=== PATIENT | male | born 1935 | race African-American/Black ===

== ENCOUNTER 2022-09-20 17:12 | Emergency (ER) | payer OTHER ==
[~2022-09-20] VITALS: Ht 182.9 cm; Wt 85.0 kg
[2022-09-20] MEDS ORDERED: LIDOCAINE 5% PATCH TOP SCH (19:00)
[2022-09-20] MEDS ORDERED: LISINOPRIL 20MG TABLET PO NR (19:00)
[2022-09-20] MEDS ORDERED: ACETAMINOPHEN 325MG TABLET PO NR (19:00)
[2022-09-20 21:06] LABS: BASOPHILS % 0.4 % (0.0-2.0); EOSINOPHILS % 4.6 % (0.0-5.0); HEMATOCRIT. 41.4 % (42.0-52.0); HEMOGLOBIN. 13.7 g/dL (14.0-18.0); MEAN CORPUSCULAR HEMOGLOBIN 30.3 pg (28.0-32.0); MEAN CORPUSCULAR VOLUME 91.3 fL (80.0-94.0); MEAN PLATELET VOLUME 8.4 fl (7.4-10.4); MONOCYTES % 14.6 % (2.0-8.0); NEUTROPHILS % 59.4 % (40.0-76.0); PLATELET 155 x1000/uL (130-400); RED BLOOD CELL COUNT 4.53 mill/uL (4.7-6.1); RED CELL DISTRIBUTION WIDTH 17.3 % (11.6-14.6)
[2022-09-20 21:15] LABS: CHLORIDE 108 mEq/L (98-107)
[2022-09-20 21:22] LABS: ETHANOL BLOOD < 10 mg/dL
[2022-09-20 21:26] LABS: PARTIAL THROMBOPLASTIN TIME 26.2 sec (23.4-31.0); PROTHROMBIN TIME 10.5 sec (9.6-11.0)
[2022-09-21 00:29] VITALS: BP 132/69
[2022-09-21] MEDS ORDERED: HYDRALAZINE HCL 10MG TABLET PO ONE (01:00)
== END 2022-09-21 01:18 | disposition home or self-care (01) ==
LOC: ER 17:12
DX: I10 Essential (primary) hypertension (principal); E11.9 Type 2 diabetes mellitus without complications; E03.9 Hypothyroidism, unspecified; E78.00 Pure hypercholesterolemia, unspecified; D64.9 Anemia, unspecified; Z91.14 Patient's other noncompliance with medication regimen; Z20.822 Contact with and (suspected) exposure to COVID-19
CPT/HCPCS: 36415; 70450; 71045; 80053; 80307; 80320; 80329; 83605; 83690; 83880; 84484; 85025; 85610; 85730; 87426; 93005; 99285; C9803; G0480